=== PATIENT | female | born 1990 ===

== ENCOUNTER 2018-09-16 19:49 | Emergency (ER) | payer MEDICAID ==
[2018-09-16 19:52] VITALS: BMI 22.2
[2018-09-16] MEDS ORDERED: DiphenhydrAMINE 50 mg/ml Inj IVP ONE (19:58)
[2018-09-16 20:12] VITALS: RESP 18
--- NOTE | 2018-09-16 22:17 | ED PDOC ---
Arrival/HPI - General Chief Complaint: Allergic Reaction Time Seen by Provider: 09/16/18 19:51 Historian: Patient - History of Present Illness Narrative History of Present Illness (Text): 09/16/18 22:17 Suyapa Whyte is a 28 year old female who presents to the emergency department for evaluation of facial swelling, rash, and some itching which began earlier today after taking Acetaminophen with codeine. Patient states Acet aminophen with codeine was given to her dentist following wisdom teeth removal. Patient was also given Amoxicillin prophylactically, which she had also taken earlier however, states she began to feel symptoms after taking Acetaminophen with codeine. Patient denies any shortness of breath, throat swelling, nausea, vomiting, or any other complaints. Symptom Onset: Gradual Symptom Course: Unchanged Activities at Onset: Light Context: Home Past Medical History - Provider Review Nursing Documentation Reviewed: Yes - Infectious Disease Hx of Infectious Diseases: None - Psychiatric Hx Substance Use: No - Surgical History Other/Comment: R ovarian cyst - Anesthesia Hx Anesthesia Reactions: No Hx Malignant Hyperthermia: No Family/Social History - Physician Review Nursing Documentation Reviewed: Yes Family/Social History: Unknown Family HX Smoking Status: Current Some Days Smoker Hx Alcohol Use: Yes Frequency of alcohol use: Socially Hx Substance Use: No Allergies/Home Meds Allergies/Adverse Reactions: Allergies No Known Allergies Allergy (Verified 09/16/18 19:52) Review of Systems - Physician Review All systems were reviewed & negative as marked: Yes - Review of Systems Constitutional: Normal. absent: Fevers Eyes: Normal ENT: Normal Respiratory: Normal. absent: SOB, Cough Cardiovascular: Normal. absent: Chest Pain Gastrointestinal: Normal. absent: Abdominal Pain, Diarrhea, Nausea, Vomiting Genitourinary Female: Normal. absent: Dysuria, Frequency, Hematuria, Urine Output Changes Musculoskeletal: Normal. absent: Back Pain, Neck Pain Skin: Rash, Pruritis Neurological: Normal. absent: Headache, Dizziness Endocrine: Normal Hemo/Lymphatic: Normal Psychiatric: Normal Physical Exam Vital Signs Reviewed: Yes Vital Signs Temp Pulse Resp BP Pulse Ox 09/16/18 19:50 98.7 F 94 H 18 135/75 100 Temperature: Afebrile Blood Pressure: Normal Pulse: Regular Respiratory Rate: Normal Appearance: Positive for: Well-Appearing, Non-Toxic, Comfortable Pain Distress: None Mental Status: Positive for: Alert and Oriented X 3 - Systems Exam Head: Present: Atraumatic, Normocephalic Pupils: Present: PERRL Extroacular Muscles: Present: EOMI Conjunctiva: Present: Normal Mouth: Present: Moist Mucous Membranes Neck: Present: Normal Range of Motion Respiratory/Chest: Present: Clear to Auscultation, Good Air Exchange. No: Respiratory Distress, Accessory Muscle Use Cardiovascular: Present: Regular Rate and Rhythm, Normal S1, S2. No: Murmurs Abdomen: No: Tenderness, Distention, Peritoneal Signs Back: Present: Normal Inspection Upper Extremity: Present: Normal Inspection. No: Cyanosis, Edema Lower Extremity: Present: Normal Inspection. No: Edema Neurological: Present: GCS=15, CN II-XII Intact, Speech Normal Skin: Present: Warm, Dry, Normal Color. No: Rashes Psychiatric: Present: Alert, Oriented x 3, Normal Insight, Normal Concentration Medical Decision Making ED Course and Treatment: 09/16/18 22:17 Impression: 28 year old female complaining of some facial swelling, rash, and itching after taking Acetaminophen with codeine. Plan: -- Benadryl -- Solu-medrol -- Reassess and disposition Progress Notes: On reassessment, pt reports relief after Benadryl and Solu-medrol, and period of observation Patient given the opportunity to ask question, all questions were answered and there is agreement with the plan to discharge the patient home. Patient is stable for discharge. Patient was instructed to follow up with physician/clinic in 1-2 days or return if symptoms persist/worsen or new concerning symptoms arise. - Medication Orders Current Medication Orders: Discontinued Medications Diphenhydramine HCl (Benadryl) 50 mg IVP ONCE ONE Stop: 09/16/18 19:59 Last Admin: 09/16/18 20:15 Dose: 50 mg IVP Administration Document 09/16/18 20:15 ([facility]16[facility]18 20:[id number] Charges for Administration # of IVP Administrations 1 Methylprednisolone (Solu-Medrol) 125 mg IVP ONCE ONE Stop: 09/16/18 19:59 Last Admin: 09/16/18 20:15 Dose: 125 mg IVP Administration Document 09/16/18 20:15 (Rec: 09/16/18 20:15 [id number] Charges for Administration # of IVP Administrations 1 - Scribe Statement The provider has reviewed the documentation as recorded by the Scribe Racheal Pineda All medical record entries made by the Scribe were at my direction and p ersonally dictated by me. I have reviewed the chart and agree that the record accurately reflects my personal performance of the history, physical exam, medical decision making, and the department course for this patient. I have also personally directed, reviewed, and agree with the discharge instructions and disposition. Disposition/Present on Arrival - Present on Arrival Any Indicators Present on Arrival: No History of DVT/PE: No History of Uncontrolled Diabetes: No Urinary Catheter: No History of Decub. Ulcer: No History Surgical Site Infection Following: None - Disposition Have Diagnosis and Disposition been Completed?: Yes Diagnosis: Drug allergy Disposition: HOME/ ROUTINE Disposition Time: 22:22 Patient Plan: Discharge Condition: GOOD Discharge Instructions (ExitCare): Drug Allergy Additional Instructions: Avoid acetaminophen with codeine meds/take meds as prescribed/follow up with your doctor this week Prescriptions: DiphenhydrAMINE [Benadryl] 50 mg PO Q6 PRN #24 cap PRN Reason: Itching / Pruritus predniSONE [Prednisone] 60 mg PO DAILY #15 tab Referrals: PCP,NO [Primary Care Provider] - Follow up with primary Forms: [employer] (Bulgarian)
[2018-09-16 22:48] VITALS: BP 106/69; PULSE 87; TEMP 98.6; O2SAT 98
== END 2018-09-16 22:30 | disposition home or self-care (01) ==
LOC: ED 19:49
DX: L27.0 Generalized skin eruption due to drugs and medicaments taken internally (principal); T39.1X5A Adverse effect of 4-Aminophenol derivatives, initial encounter
CPT/HCPCS: 96374; 96375; 99284; J1200; J2930